=== PATIENT | female | born 1940 | race Caucasian/White ===

== ENCOUNTER 2017-05-30 15:02 | Outpatient (CLI) | payer MEDICARE, OTHER ==
--- NOTE | 2017-05-30 17:32 | RAD ---
CERVICAL SPINE THREE VIEWS 05/30/17 Disc space narrowing is present at C4-C5 and C5-C6. There is minor retrolisthesis of C4 on C5. Some arthritic changes are seen in some of the facet joints. No fracture, dislocation, or soft tissue swe lling was seen. The C1 to dens distance is normal. IMPRESSION: Degenerative changes, particularly at the C4 through C6 levels. This could potentially cause shoulde r pain. POS: HOME
--- NOTE | 2017-05-30 17:34 | RAD ---
RIGHT SHOULDER THREE VIEWS 05/30/17 No fracture or dislocation was seen. There are some minor arthritic changes in the AC joint. No arth ritic changes are seen in the glenohumeral joint. A rounded noncalcified nodule is seen in the right upper lobe that measures 1.9 cm in size. It has been followed via CT and this size is about the jeffy e as was measured on the 2016 CAT scan. IMPRESSION: Minor AC joint degenerative change. POS: HOME
== END 2017-05-30 15:03 | disposition home or self-care (01) ==
LOC: BURRAD 15:02
PROVIDERS: ATTEND Family Medicine
DX: M54.2 Cervicalgia (principal); M25.511 Pain in right shoulder; M19.011 Primary osteoarthritis, right shoulder; M47.812 Spondylosis without myelopathy or radiculopathy, cervical region
CPT/HCPCS: 72040

== ENCOUNTER 2020-11-28 13:50 | Outpatient (CLI) | payer MEDICARE, OTHER ==
--- NOTE | 2020-11-28 19:23 | RAD ---
LEFT LEG TWO VEIWS: Date: 11-28-2020 FINDINGS: The tibia and fibula both appear intact. No fractures were apparent. IMPRESSION: No acute finding. POS: HOME
--- NOTE | 2020-11-28 19:26 | RAD ---
LEFT ANKLE THREE VIEWS: Date: 11-28-2020 FINDINGS: No fracture was seen. The joint space is normal in appearance for age. IMPRESSION: No acute finding. POS: HOME
--- NOTE | 2020-11-28 20:48 | RAD ---
LEFT FOOT THREE VIEWS: Date: 11-28-2020 FINDINGS: No fracture, dislocation, or acute bony change was seen. There is some mild narrowing of the first MT P joint, obviously a chronic finding. A small hemal of bone is seen on the dorsum of the talus anteri ekaterina, near the talonavicular joint. I cannot tell if this is an old injury or a small acute cortical convulsion. Correlate with clinical exam. IMPRESSION: Apparent small cortical avulsion from the anterior talus near the talonavicular joint. Acute versus o ld. Correlated with physical exam. POS: HOME
== END 2020-11-28 13:51 | disposition home or self-care (01) ==
LOC: BURRAD 13:50
PROVIDERS: ATTEND Physician Assistant
DX: M79.605 Pain in left leg (principal); M79.672 Pain in left foot; W00.0XXA Fall on same level due to ice and snow, initial encounter

== ENCOUNTER 2024-03-06 12:24 | Outpatient (CLI) | payer MEDICARE, OTHER | END 2024-03-06 12:25 | disposition home or self-care (01) | LOC: BURRAD 12:24 | PROVIDERS: ATTEND Family Medicine | DX: M54.41 Lumbago with sciatica, right side (principal); M16.12 Unilateral primary osteoarthritis, left hip; M46.1 Sacroiliitis, not elsewhere classified; M47.816 Spondylosis without myelopathy or radiculopathy, lumbar region | CPT/HCPCS: 72100; 72170 ==